=== PATIENT | female | born 1950 | race Caucasian/White ===

== ENCOUNTER 2016-12-26 14:57 | Emergency (ER) | payer MEDICARE, OTHER ==
[~2016-12-26] VITALS: Ht 170.2 cm; Wt 52.2 kg
[2016-12-26] MEDS ORDERED: ALPR0.25 PO (15:12)
[2016-12-26] MEDS ORDERED: SERT50TA PO (15:12)
--- NOTE | 2016-12-26 15:23 | NUR ---
PT IS IN ROOM #2A. DR MEDEL EVALUATED THE PT.
--- NOTE | 2016-12-26 16:07 | NUR ---
PT WAS D/C TO HOME. D/C INSTRUCTIONS GIVEN TO THE PT.
[2016-12-26 16:08] VITALS: BP 128/73
== END 2016-12-26 16:09 | disposition home or self-care (01) ==
LOC: ER 14:58
DX: M84.375A Stress fracture, left foot, initial encounter for fracture (principal); F41.9 Anxiety disorder, unspecified; I10 Essential (primary) hypertension; F32.9 Major depressive disorder, single episode, unspecified; Z88.6 Allergy status to analgesic agent; W01.0XXA Fall on same level from slipping, tripping and stumbling without subsequent striking against object, initial encounter; Y93.89 Activity, other specified; Y92.89 Other specified places as the place of occurrence of the external cause; Y99.8 Other external cause status
CPT/HCPCS: 73630; A4663

== ENCOUNTER 2018-05-27 21:43 | Emergency (ER) | payer MEDICARE, OTHER ==
[~2018-05-27] VITALS: Ht 170.2 cm; Wt 52.2 kg
[~2018-05-27 21:43] MED LIST: ALPR0.25 PO; SERT50TA PO
--- NOTE | 2018-05-27 22:01 | NUR ---
Pt. BIB [facility] for reported fall outside of house while taking out trash, ecchymosis noted on R side of face surrounding orbital eye socket, blood noted on hands, pt. 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
[2018-05-27] MEDS ORDERED: CLONIDINE HCL 0.2 MG TABLET ONE (22:30)
[2018-05-27 22:32] VITALS: BP 175/90
[2018-05-27] MEDS: CLONIDINE HCL 0.2 MG TABLET PO ONE (22:32)
--- NOTE | 2018-05-27 23:39 | NUR ---
Patient does not wish to proceed with medical care recommended by Dr. Mckeon. Patient given information related to possible complications, up to and including , which could occur as a result of leaving the hospital at this time. Patient verbalizes understanding of risks involved due to leaving against medical advice. Patient has signed AMA form. [employer] service called, pt. awaiting pickup in ER lobby,
[2018-09-02] MEDS ORDERED: MULT1TAB73 PO (14:25)
[2018-09-02] MEDS ORDERED: ATOR10TA PO (14:25)
[2018-09-02] MEDS ORDERED: PANT40TA2 PO (14:25)
[2018-09-02] MEDS ORDERED: TEMA15CA PO (14:25)
[2018-09-02] MEDS ORDERED: DOCU100C36 PO (14:25)
[2018-09-02] MEDS ORDERED: MIRT15TA7 PO (14:25)
[2018-09-02] MEDS ORDERED: POLY17PO4 PO (14:25)
[2018-09-02] MEDS ORDERED: ASPI-618 PO (14:25)
[2018-09-02] MEDS ORDERED: SERT50TA PO (14:25)
[2018-09-02] MEDS ORDERED: METO-356 PO (14:35)
== END 2018-05-27 23:44 | disposition left against medical advice (07) ==
LOC: ER 21:44
DX: S00.83XA Contusion of other part of head, initial encounter (principal); I10 Essential (primary) hypertension; Z88.5 Allergy status to narcotic agent; Z79.899 Other long term (current) drug therapy; W10.9XXA Fall (on) (from) unspecified stairs and steps, initial encounter; Y93.89 Activity, other specified; Y92.89 Other specified places as the place of occurrence of the external cause; Y99.8 Other external cause status
CPT/HCPCS: A4663

== ENCOUNTER 2018-08-30 11:55 | Inpatient (IN) | payer OTHER ==
[~2018-08-30] VITALS: Ht 170.2 cm; Wt 49.9 kg
--- NOTE | 2018-08-30 12:35 | NUR ---
Pt out of ER w/ Ct.
[2018-08-30 12:38] LABS: BASOPHILS % (AUTO) 0.5 % (0.0-2.0); EOSINOPHILS % (AUTO) 0.4 % (0.0-7.0); HEMATOCRIT 42.3 % (31.2-41.9); HEMOGLOBIN 14.2 g/dL (10.9-14.3); LYMPHOCYTES # (AUTO) 0.8 K/uL (20.0-40.0); MEAN CORPUSCULAR HEMOGLOBIN 32.3 uug (24.7-32.8); MEAN CORPUSCULAR HGB CONC 34 g/dL (32.3-35.6); MEAN CORPUSCULAR VOLUME 96.6 fL (75.5-95.3); MONOCYTES # (AUTO) 0.4 K/uL (2.0-10.0); MONOCYTES % (AUTO) 7.5 % (0.0-11.0); NEUTROPHILS # (AUTO) 4.4 K/uL (1.8-8.9); NEUTROPHILS % (AUTO) 77.6 % (38.5-71.5); PLATELET COUNT (AUTO) 362 K/uL (179-408); RED BLOOD CELL COUNT(AUTO) 4.38 MIL/uL (3.63-4.92); WHITE BLOOD COUNT (AUTO) 5.7 K/uL (3.8-11.8)
[2018-08-30 12:45] LABS: ETHANOL < 3 MG/DL (0-0)
[2018-08-30 12:48] LABS: CARBON DIOXIDE 21 mmol/L (21-32); CHLORIDE 105 mmol/L (98-107); CREATININE 0.8 mg/dL (0.6-1.3); GLUCOSE 104 mg/dL (74-106); POTASSIUM 3.4 mmol/L (3.5-5.1); UREA NITROGEN, BLOOD 26 mg/dL (7-18)
[2018-08-30 12:52] LABS: THYROID STIMULATING HORMONE 2.997 mIU/mL (0.358-3.740)
[2018-08-30 12:55] LABS: ALANINE AMINOTRANSFERASE 39 U/L (14-59); ALKALINE PHOSPHATASE 78 U/L (50-136); ASPARTATE AMINOTRANSFERASE 56 U/L (15-37); BILIRUBIN,DIRECT 0.2 mg/dL (0.0-0.2); BILIRUBIN,TOTAL 0.9 mg/dL (0.2-1.0); TOTAL PROTEIN, SERUM 7.8 g/dL (6.4-8.2)
[2018-08-30 12:56] LABS: ACETAMINOPHEN < 2.0 ug/mL (10-30)
--- NOTE | 2018-08-30 13:04 | NUR ---
Pt abrasion site on Jayant knee and Lt elbow, cleaned and dressed.
[2018-08-30] MEDS ORDERED: ASPIRIN 81 MG TAB.CHEW PO ONE (13:30)
[2018-08-30] MEDS ORDERED: ASPIRIN 81 MG TAB.CHEW ONE (13:35)
--- NOTE | 2018-08-30 13:37 | NUR ---
After pt passing swallow eval, lunch provided, ate w/ moderate appetite.
--- NOTE | 2018-08-30 14:26 | NUR ---
Patient is resting comfortably in bed with eyes closed, NAD noted.
[2018-08-30 16:45] VITALS: BP 143/80
[2018-08-30 18:00] VITALS: BP 158/94
[2018-08-30 20:05] VITALS: BP 163/78
[2018-08-30] MEDS ORDERED: MAGNESIUM HYDROXIDE 30 ML LIQUID UDC PO PRN (21:45)
[2018-08-30] MEDS ORDERED: ACETAMINOPHEN 325 MG TABLET PO PRN (21:45)
[2018-08-30] MEDS ORDERED: ONDANSETRON 4 MG/2 ML VIAL IV PRN (21:45)
[2018-08-30] MEDS ORDERED: MORPHINE SULFATE 2 MG/1 ML DISP.SYRIN IV PRN (21:45)
[2018-08-30] MEDS ORDERED: MIRALAX 17 GM POWD.PACK PO PRN (22:00)
[2018-08-30] MEDS: TEMAZEPAM 30 MG CAPSULE PO PRN (23:14)
[2018-08-31] VITALS (7 sets, daily range): BP systolic 128–186; BP diastolic 56–93
[2018-08-31] MEDS: LORAZEPAM 2 MG/1 ML VIAL IV PRN ×2 (00:53→22:24)
[2018-08-31 05:46] LABS: BASOPHILS % (AUTO) 0.7 % (0.0-2.0); EOSINOPHILS # (AUTO) 0.1 K/uL (0.0-0.7); EOSINOPHILS % (AUTO) 1.6 % (0.0-7.0); HEMATOCRIT 42.1 % (31.2-41.9); HEMOGLOBIN 14.2 g/dL (10.9-14.3); LYMPHOCYTES # (AUTO) 1.8 K/uL (20.0-40.0); LYMPHOCYTES % (AUTO) 28.3 % (20.5-51.5); MEAN CORPUSCULAR HEMOGLOBIN 32.3 uug (24.7-32.8); MEAN CORPUSCULAR HGB CONC 34 g/dL (32.3-35.6); MEAN CORPUSCULAR VOLUME 95.7 fL (75.5-95.3); MONOCYTES # (AUTO) 0.6 K/uL (2.0-10.0); MONOCYTES % (AUTO) 10.3 % (0.0-11.0); NEUTROPHILS # (AUTO) 3.7 K/uL (1.8-8.9); NEUTROPHILS % (AUTO) 59.1 % (38.5-71.5); PLATELET COUNT (AUTO) 340 K/uL (179-408); WHITE BLOOD COUNT (AUTO) 6.3 K/uL (3.8-11.8)
[2018-08-31 06:38] LABS: BILIRUBIN,TOTAL 0.6 mg/dL (0.2-1.0); CREATININE 0.6 mg/dL (0.6-1.3); PHOSPHOROUS 2.9 mg/dL (2.5-4.9); POTASSIUM 3.1 mmol/L (3.5-5.1); TOTAL PROTEIN, SERUM 7.1 g/dL (6.4-8.2)
[2018-08-31] MEDS: PANTOPRAZOLE SODIUM 40 MG TABLET.DR PO SCH (06:51)
--- NOTE | 2018-08-31 07:00 | NUR ---
STATED " I CAN'T GET ANY SLEEP WITH ALL THAT NOISE" REQUESTED THAT DOOR BE SHUT. NO CHANGE IN NUERO STATUS
--- NOTE | 2018-08-31 07:05 | NUR ---
patient received, head to toe assessment is done, safe and comfort measures are implemented, pictures taken,big toe, put in the file, patient resting in the bed,no signs of distress, bed in low position. call light in reach, side rails up, continue to monitor Addendum: 08/31/18 at 1207 by JUAN SHANNON RN wrong entry
--- NOTE | 2018-08-31 07:20 | NUR ---
67 years old women, with possible stroke, altered mental status and fall, received from material handler 2nd shift, seems restless, CT scan result no acute fracture is identified,assessment has done, patient watching TV,safe and comfort measures are implemented, talked to patient mother on the phone, explained
[2018-08-31] MEDS: SERTRALINE HCL 50 MG TABLET PO SCH (08:24)
[2018-08-31] MEDS: ASPIRIN EC 81 MG TABLET.DR PO SCH (08:24)
[2018-08-31] MEDS: CLOPIDOGREL 75 MG TABLET PO SCH (08:25)
[2018-08-31] MEDS ORDERED: POTASSIUM CHLORIDE 20 MEQ TAB.PRT.SR PO ONE (09:30)
[2018-08-31 09:35] LABS: THYROID STIMULATING HORMONE 5.009 mIU/mL (0.358-3.740)
--- NOTE | 2018-08-31 11:00 | NUR ---
SEEN BY PHYSICAL THERAPIST SEE NOTES
--- NOTE | 2018-08-31 11:30 | NUR ---
TRIED TO REACH DR PATE FOR CONSULT MESSAGE LEFT
--- NOTE | 2018-08-31 12:11 | NUR ---
waiting for neuro and psych consulting
--- NOTE | 2018-08-31 17:55 | NUR ---
PATIENT REMAINS CONFUSED AND DISORIENTED X3, PEDRO MONITORED. WANTS TO GO HOME SPOKE WITH DISCOUNT CLERK SEE NOTES
--- NOTE | 2018-08-31 18:20 | NUR ---
TRIED TO REACH DR PATE , WAS ABLE TO TALK TO HIM AND SAID WILL SEE PATIENT IN AM
[2018-08-31] MEDS: DOCUSATE SODIUM 100 MG CAPSULE PO SCH (20:20)
[2018-08-31] MEDS: ENALAPRILAT DIHYDRATE 1.25 MG/1 ML VIAL IV PRN (20:48)
[2018-08-31] MEDS: TEMAZEPAM 30 MG CAPSULE PO PRN (20:55)
--- NOTE | 2018-08-31 22:10 | NUR ---
Received patient awake and alert in bed. Pt passed swallowing screen. Tolerated PRN restoril PO. Patient appears in no acute distress. Denies pain. IV intact and patent. Safety and comfort measures implemented. Bed in lowest and locked position. Bed alarm on. All needs met at this time. Will continue to monitor throughout shift.
--- NOTE | 2018-09-01 02:57 | NUR ---
INFORMATION SENT: FACESHEET, PROGRESS NOTES 08-31,UR-08-31,ADMIT ORDER,H&P,VITALS,24 HOURS,CONSULTATION INSURANCE NAME: [facility] FAX NUMBER: [phone] & [phone] / [phone] FAX SENT
[2018-09-01 03:27] VITALS: BP 141/77
--- NOTE | 2018-09-01 06:08 | NUR ---
Patient slept between care and still remains confused. No signs of acute distress. Denies pain. All needs met. Safety measures implemented and effective. Continue plan of care. Call light within reach.
[2018-09-01] MEDS: PANTOPRAZOLE SODIUM 40 MG TABLET.DR PO SCH (06:32)
--- NOTE | 2018-09-01 08:09 | NUR ---
Patient noted restring in bed with covers over head, patient noted saying," Get out" while house keeping was sweeping floor, no complaints of pain at this time, no signs of distress noted, call light in reach, bed locked and in lowest position, all needs met at this time
[2018-09-01] MEDS: ASPIRIN EC 81 MG TABLET.DR PO SCH (08:46)
[2018-09-01] MEDS: SERTRALINE HCL 50 MG TABLET PO SCH (08:46)
[2018-09-01] MEDS: CLOPIDOGREL 75 MG TABLET PO SCH (08:46)
[2018-09-01 11:08] VITALS: BP 129/83
[2018-09-01 15:09] VITALS: BP 159/88
--- NOTE | 2018-09-01 19:00 | NUR ---
PATIENT AWAKE WITH EPISODES OF ANXIETY, RESTLESS NOTED WHILE IN HER ROOM. REDIRECT PATIENT BEHAVIOR. PATIENT MEDICATED BY AM RN FOR ANXIETY WILL CONT TO MONITOR.
[2018-09-01] MEDS: LORAZEPAM 2 MG/1 ML VIAL IV PRN (19:07)
[2018-09-01 19:47] VITALS: BP 172/97
[2018-09-01] MEDS: DOCUSATE SODIUM 100 MG CAPSULE PO SCH (20:05)
[2018-09-01] MEDS: TEMAZEPAM 30 MG CAPSULE PO PRN (21:02)
[2018-09-01] MEDS ORDERED: MIRTAZAPINE 15 MG TABLET PO SCH (22:15)
--- NOTE | 2018-09-01 22:15 | NUR ---
SEEN BY DR HERLINDA FITCH WITH NEW ORDER.
--- NOTE | 2018-09-02 05:28 | NUR ---
INFORMATION SENT: FACESHEET,PROGRESS NOTES 09/01,UR 09-01 INSURANCE NAME: [facility] FAX NUMBER: [phone] & [phone] / [phone] FAX SENT
[2018-09-02] MEDS: PANTOPRAZOLE SODIUM 40 MG TABLET.DR PO SCH (06:03)
[2018-09-02 06:10] VITALS: BP 134/73
--- NOTE | 2018-09-02 06:36 | NUR ---
PATIENT AWAKE, ASLEEP BUT EASILY AROUSABLE. PATIENT SLEPT AT LEAST 7 HRS. NO FURTHER EPISODES OF ANXIETY RESTLESSNESS. COOPERATIVE CARE, CALL LIGHT WITHIN REACH.
[2018-09-02 07:02] LABS: CREATININE 0.5 mg/dL (0.6-1.3); MAGNESIUM 1.9 mg/dL (1.8-2.4); PHOSPHOROUS 3.5 mg/dL (2.5-4.9); POTASSIUM 3.2 mmol/L (3.5-5.1)
--- NOTE | 2018-09-02 07:15 | NUR ---
RECEIVED PATIENT ON BED, ASLEEP, NO ACUTE DISTRESS NOTED. APPEARS COMFORTABLE. IV ACCESS ON RIGHT AC INTACT AND PATENT. PSYCH CONSULT BY DR. PATE LAST NIGHT. COMFORT MEASURES PROVIDED. CALL LIGHT WITHIN REACH. WILL CONTINUE TO MONITOR CLOSELY
[2018-09-02 07:21] LABS: BASOPHILS % (AUTO) 1.1 % (0.0-2.0); EOSINOPHILS # (AUTO) 0.1 K/uL (0.0-0.7); EOSINOPHILS % (AUTO) 3.3 % (0.0-7.0); HEMATOCRIT 42.6 % (31.2-41.9); LYMPHOCYTES # (AUTO) 1.9 K/uL (20.0-40.0); LYMPHOCYTES % (AUTO) 44.3 % (20.5-51.5); MEAN CORPUSCULAR HEMOGLOBIN 31.9 uug (24.7-32.8); MEAN CORPUSCULAR HGB CONC 33 g/dL (32.3-35.6); MEAN CORPUSCULAR VOLUME 97.1 fL (75.5-95.3); MONOCYTES # (AUTO) 0.3 K/uL (2.0-10.0); MONOCYTES % (AUTO) 7.9 % (0.0-11.0); NEUTROPHILS # (AUTO) 1.9 K/uL (1.8-8.9); NEUTROPHILS % (AUTO) 43.4 % (38.5-71.5); PLATELET COUNT (AUTO) 340 K/uL (179-408); RED BLOOD CELL COUNT(AUTO) 4.38 MIL/uL (3.63-4.92)
[2018-09-02 07:24] LABS: WHITE BLOOD COUNT (AUTO) 4.4 K/uL (3.8-11.8)
[2018-09-02] MEDS: CLOPIDOGREL 75 MG TABLET PO SCH (09:45)
[2018-09-02] MEDS: ASPIRIN EC 81 MG TABLET.DR PO SCH (09:45)
[2018-09-02] MEDS: SERTRALINE HCL 50 MG TABLET PO SCH (09:45)
[2018-09-02] MEDS: LORAZEPAM 2 MG/1 ML VIAL IV PRN (09:53)
[2018-09-02 11:09] VITALS: BP 160/106
[2018-09-02 11:35] VITALS: BP 160/106
[2018-09-02] MEDS: ENALAPRILAT DIHYDRATE 1.25 MG/1 ML VIAL IV PRN (11:35)
--- NOTE | 2018-09-02 12:30 | NUR ---
PATIENT BACK FROM CARDIO CT ANGIO PROCEDURE, IN STABLE CONDITION. WILL CONTINUE TO MONITOR CLOSELY. Addendum: 09/02/18 at 1245 by SITA SHAFFER RN ENTRY ERROR FOR DIFFERENT PATIENT
[2018-09-02] MEDS ORDERED: POTASSIUM CHLORIDE 20 MEQ TAB.PRT.SR PO ONE (12:45)
[2018-09-02] MEDS ORDERED: MULT1TAB73 PO (14:25)
[2018-09-02] MEDS ORDERED: DOCU100C36 PO (14:25)
[2018-09-02] MEDS ORDERED: POLY17PO4 PO (14:25)
[2018-09-02] MEDS ORDERED: ATOR10TA PO (14:25)
[2018-09-02] MEDS ORDERED: SERT50TA PO (14:25)
[2018-09-02] MEDS ORDERED: MIRT15TA7 PO (14:25)
[2018-09-02] MEDS ORDERED: PANT40TA2 PO (14:25)
[2018-09-02] MEDS ORDERED: TEMA15CA PO (14:25)
[2018-09-02] MEDS ORDERED: ASPI-618 PO (14:25)
[2018-09-02] MEDS ORDERED: METO-356 PO (14:35)
--- NOTE | 2018-09-02 16:30 | NUR ---
PATIENT DISCHARGED TO [facility] IN STABLE CONDITION. REPORT GIVEN TO RAPHAEL STORM. DISCHARGE PAPERS AND INSTRUCTIONS GIVEN AND EXPLAINED TO PATIENT, VERBALIZED UNDERSTANDING, IV ACCESS REMOVED WELL TOLERATED. PATIENT LEFT HOSPITAL VIA AMBULANCE, ACCOMPANIED BY 2 EMT.
--- NOTE | 2018-09-05 05:33 | NUR ---
INFORMATION SENT: FACESHEET,DISCHARGE SUMMARY INSURANCE NAME: [facility] / [facility] FAX NUMBER: [phone] & [phone] / [phone] FAX SENT
== END 2018-09-02 16:30 | DRG 65 ==
LOC: ER 11:55 → CCU 15:28 → TELE-TD3 20:45 → TELE3 08-31 10:36 → MEDSURG3 09-01 11:22
PROVIDERS: ADMIT Internal Medicine; ATTEND Internal Medicine
DX: I63.9 Cerebral infarction, unspecified (principal); G93.49 Other encephalopathy; D68.59 Other primary thrombophilia; G91.2 (Idiopathic) normal pressure hydrocephalus; R29.700 NIHSS score 0; F32.9 Major depressive disorder, single episode, unspecified; H54.62 Unqualified visual loss, left eye, normal vision right eye; S80.212A Abrasion, left knee, initial encounter; S80.211A Abrasion, right knee, initial encounter; S50.312A Abrasion of left elbow, initial encounter; S50.311A Abrasion of right elbow, initial encounter; W19.XXXA Unspecified fall, initial encounter; Y92.039 Unspecified place in apartment as the place of occurrence of the external cause; M48.02 Spinal stenosis, cervical region; R62.7 Adult failure to thrive; Z74.09 Other reduced mobility; F43.21 Adjustment disorder with depressed mood; D75.89 Other specified diseases of blood and blood-forming organs; Z91.81 History of falling; I10 Essential (primary) hypertension; G93.89 Other specified disorders of brain
CPT/HCPCS: 36415; 70030-TC; 70450; 71045; 72125; 83550; 83735; 84100; 84443; 85025; 85730; 92526; 92610; 93005; 93307; 93880; 97116; 97165; 97530; 97535; A4217; A4663; G0378; G0480; G0480-TC; J2060; J3490